=== PATIENT | female | born 1950 | race Caucasian/White ===

== ENCOUNTER 2018-01-04 07:29 | Outpatient (CLI) | payer OTHER ==
[~2018-01-04 07:29] MED LIST: GLIMEPIRIDE2 MG; GLUCOPHAGE XR500 MG; MACRODANTIN100 M1; PERCOCET 5/3251 TAB PO; PRILOSEC20 MG; ROBITUSSIN-DM118 ML; SYNTHROID75 MCG; ZANTAC150 M3; ZITHROMAX200 MG
== END 2018-01-04 17:00 | disposition home or self-care (01) ==
LOC: RX STUDY 07:29
DX: K62.89 Other specified diseases of anus and rectum (principal); K52.89 Other specified noninfective gastroenteritis and colitis

== ENCOUNTER 2018-04-03 19:21 | Emergency (ER) | payer OTHER ==
[~2018-04-03] VITALS: Ht 160 cm; Wt 70.3 kg
== END 2018-04-03 23:09 | disposition home or self-care (01) ==
LOC: ER 19:21
DX: K42.9 Umbilical hernia without obstruction or gangrene (principal); R10.12 Left upper quadrant pain

== ENCOUNTER 2020-10-13 16:23 | Emergency (ER) | payer OTHER ==
[~2020-10-13] VITALS: Ht 157.5 cm; Wt 65.8 kg
[2020-10-13] MEDS ORDERED: JENTADUETO XR1 EACH PO (16:51)
[2020-10-13] MEDS ORDERED: VITAMIN C500 M1 PO (16:52)
[2020-10-13] MEDS ORDERED: PROTONIX40 MG PO (16:53)
[2020-10-13] MEDS ORDERED: PEPCID AC20 MG PO (16:53)
== END 2020-10-13 20:02 | disposition home or self-care (01) ==
LOC: ER 16:23
DX: I82.492 Acute embolism and thrombosis of other specified deep vein of left lower extremity (principal); M79.605 Pain in left leg